=== PATIENT | female | born 1950 | race Caucasian/White ===

== ENCOUNTER 2018-03-19 05:15 | Day surgery (SDC) | payer OTHER ==
[~2018-03-19 05:15] MED LIST: EVISTA60 MG PO; NEUROTIN PO; ZOCOR40 MG PO
[2018-03-19] MEDS ORDERED: ULTRACET PO (09:50)
[2018-03-19] MEDS ORDERED: MACROBID 100 M100 MG PO (09:51)
== END 2018-03-19 13:50 | disposition home or self-care (01) ==
LOC: CIR.AMB 05:15
DX: N81.3 Complete uterovaginal prolapse (principal)